=== PATIENT | male | born 1965 | race Caucasian/White ===

== ENCOUNTER 2023-04-05 20:34 | Emergency (ER) | payer OTHER ==
[~2023-04-05] VITALS: Ht 182.9 cm; Wt 111.1 kg
[~2023-04-05 20:34] MED LIST: CEPH250A; DIAZ10; HYDACE5 PO; LORA1 PO; META800; NAPR550 PO; RXHYDACE PO; RXNAPNA550 PO
[2023-04-05 21:31] LABS: BASOPHILS ABSOLUTE AUTO 0.02 K/mm3 (0.00-0.23); BASOPHILS PERCENT AUTO 0 % (0-2); EOSINOPHILS ABSOLUTE AUTO 0.05 K/mm3 (0.00-0.68); EOSINOPHILS PERCENT AUTO 0 % (0-6); IMMATURE GRAN ABSOLUTE AUTO 0.11 K/mm3 (0.00-0.10); IMMATURE GRAN PERCENT AUTO 1 % (0-1); LYMPHOCYTES ABSOLUTE AUTO 0.77 K/mm3 (0.84-5.20); LYMPHOCYTES PERCENT AUTO 5 % (21-46); MONOCYTES ABSOLUTE AUTO 0.79 K/mm3 (0.16-1.47); MONOCYTES PERCENT AUTO 5 % (4-13); Mean Corpuscular HGB 29.4 pg (26.0-34.0); Mean Corpuscular Volume 86 fL (80-100); Mean Platelet Volume 9.2 fL (9.1-12.4); NEUTROPHILS PERCENT AUTO 89 % (41-73); Platelet Count 288 K/mm3 (150-400); RDW Coefficient Variation 15.1 % (11.7-14.2); RDW Standard Deviation 47.6 fL (35.1-46.3); Red Blood Cell Count 5.44 M/mm3 (4.30-5.90); White Blood Cell Count 16.34 K/mm3 (4.00-11.30)
[2023-04-05 21:46] LABS: Albumin/Globulin Ratio 1.1 (0.8-1.8); Bilirubin, Total 0.4 mg/dL (0.1-1.0); Bun/Creatinine Ratio 12.5 (12.0-20.0); Creatinine, Blood 1.28 mg/dL (0.60-1.20); Globulin, Blood 3.6 g/dL (2.2-4.0); Potassium, Blood 4.2 mmol/L (3.5-5.5); Total Protein, Blood 7.6 g/dL (6.4-8.2)
[2023-04-06] MEDS ORDERED: BACTRIM DS TAB1 EAC1 PO (03:42)
[2023-04-06] MEDS ORDERED: CEPH500 PO (03:42)
[2023-04-06 03:47] VITALS: BP 102/50
== END 2023-04-06 03:51 | disposition home or self-care (01) ==
LOC: ER 20:34
PROVIDERS: Student in an Organized Health Care Education/Training Program
DX: L03.032 Cellulitis of left toe (principal); Z86.718 Personal history of other venous thrombosis and embolism; Z79.01 Long term (current) use of anticoagulants
CPT/HCPCS: 73660; 80053; 85025; 93005; 93010; 93971; 96365; 96375; 99284-25; A9270; J0696; J1885; J7030